=== PATIENT | male | born 1955 | race Hispanic/Latino ===

== ENCOUNTER → 2019-10-21 | Outpatient (CLI) | payer MEDICARE ==
[2019-10-21 11:11] LABS: BASOPHILS % (AUTO) 0.4 % (0.0-5.0); EOSINOPHILS % (AUTO) 0.2 % (0.0-8.0); HEMATOCRIT 44.6 % (42-54); LYMPHOCYTES % (AUTO) 24.9 % (21.0-51.0); MEAN CORPUSCULAR HEMOGLOBIN 27.6 pg (27.0-33.0); MEAN CORPUSCULAR HGB CONC 33.2 g/dL (32.0-36.0); MEAN CORPUSCULAR VOLUME 83.2 fL (79-99); MONOCYTES % (AUTO) 5.1 % (3.0-13.0); NEUTROPHILS % (AUTO) 68.1 % (40.0-77.0); PLATELET COUNT (AUTO) 348 K/uL (130-400); RED BLOOD CELL COUNT(AUTO) 5.36 MIL/uL (4.50-6.20); RED CELL DISTRIBUTION WIDTH 13.2 % (11.0-15.5); WHITE BLOOD COUNT (AUTO) 11.3 K/uL (4.8-10.8)
[2019-10-21 11:20] LABS: HEMOGLOBIN A1C 5.7 % (4.0-6.0)
[2019-10-21 11:33] LABS: ALBUMIN 3.7 g/dL (3.5-5.0); BILIRUBIN,TOTAL 0.4 mg/dL (0.2-1.0); CREATININE 1.1 mg/dL (0.5-1.5); THYROID STIMULATING HORMONE 1.66 uIU/mL (0.36-3.74)
== END | disposition home or self-care (01) ==
LOC: LAB 10:08
PROVIDERS: ATTEND Psychiatry & Neurology Psychiatry
DX: F31.12 Bipolar disorder, current episode manic without psychotic features, moderate (principal); F41.1 Generalized anxiety disorder; F45.1 Undifferentiated somatoform disorder; I10 Essential (primary) hypertension; G47.33 Obstructive sleep apnea (adult) (pediatric); Z79.899 Other long term (current) drug therapy
CPT/HCPCS: 36415; 80053; 80061; 83036; 84443; 85025

== ENCOUNTER 2025-08-01 10:49 | Emergency (ER) | payer MEDICARE ==
[~2025-08-01] VITALS: Ht 177.8 cm; Wt 120.2 kg
--- NOTE | 2025-08-01 10:53 | ERN ---
ED Note History of Present Illness Stated Complaint: TARRY STOOLS X 3 DAYS Chief Complaint: Tarry Stool Time Seen by MD: 10:52 Time Seen by Midlevel: 10:55 Dictation: Mr. Euceda is a 70 year old gentleman history of bipolar depression, anxiety, hypertension, CVA (right-sided weakness/balance issues), and obesity who presented to the emergency department this morning for evaluation of rectal bleeding. He states that for the past two days he noted black stool worse. He states he has been fatigued but denies shortness of breath, chest pain, palpitations, edema, fever, chills, abdominal pain, hematemesis, nausea, headache, or dizziness. He states this morning he had heavy flow" black and dark red bleeding with bowel movement prompting him to come to the hospital. He states he had a colonoscopy 20 years ago He states that his Mother, at age 20, was noted to have "cancerous polyps that required removal". He takes no Aspirin/antiplatelet medications or anticoagulants. PCP: Dr. Ronald Conway Allergies: Coded Allergies: No Known Drug Allergies (Unverified Allergy, Unknown, 08/01/25) Past Medical History Past Medical History: Anxiety, Bipolar, Hypertension Surgical History: Other Surgical History Other: NECK SURGERY PSYCH History: anxiety, bipolar, depression Social History: Negative, Lives with family RN Note Reviewed/Agreed w/PFSH: Yes Review of System Dictation REVIEW OF SYSTEMS: CONSTITUTIONAL: Patient denies fevers, chills, sweats and weight changes. Reports fatigue EYES: Patient denies any visual symptoms. EARS, NOSE, AND THROAT: No difficulties with hearing. No symptoms of rhinitis or sore throat. CARDIOVASCULAR: Patient denies chest pains, palpitations, orthopnea and paroxysmal nocturnal dyspnea. RESPIRATORY: No dyspnea on exertion, no wheezing or cough. GI: No nausea, vomiting, diarrhea, constipation, or abdominal pain. Reports two days of black tarry stools. He states this morning he had black and dark red stool. : No urinary hesitancy or dribbling. No nocturia or urinary frequency. No abnormal urethral discharge. MUSCULOSKELETAL: No myalgias or arthralgias. NEUROLOGIC: No chronic headaches, no seizures. Patient denies numbness, tingling or weakness. PSYCHIATRIC: Patient denies problems with mood disturbance. No problems with anxiety. ENDOCRINE: No excessive urination or excessive thirst. DERMATOLOGIC: Patient denies any rashes or skin changes. Initial Vital Sign VS Vital Signs Date Time Temp Pulse Resp B/P (MAP) Pulse Ox O2 Delivery O2 Flow Rate FiO2 08/01/25 10:50 97.9 91 18 137/88 98 Room Air 08/01/25 13:23 0 21 Physical Exam Dictation Vital signs: Reviewed. Afebrile Constitutional: No acute distress. Calm. Pleasant. Significant other at bedside Head/Face: Normocephalic, atraumatic. Eyes: Periorbital areas with no swelling, redness, or edema. Lids and lashes are normal. Conjunctival injection is absent. Sclera anicteric. Pupils equal, round, reactive to light. ENT: Pinnas intact and no signs of trauma or erythema. Ear canals clear and no discharge. TMs no erythema. No nasal discharge or bleeding noted. Oropharynx with no exudate, redness, swelling, masses, exudates, or evidence of obstruction. Uvula midline. Mucous membranes moist. Neck: Trachea midline, no masses palpated, and no cervical lymphadenopathy. No swelling. Supple, full range of motion. Chest/Axilla: No tenderness, no crepitus, no paradoxical movement, no retractions. Cardiovascular: Regular rate, regular rhythm, no murmur, no gallops. Symmetric pulses. No peripheral edema. 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 BP 137/88 Respiratory: Respirations even and unlabored. Lung sounds clear; no wheezes, rales or rhonchi. Room air SpO2 98% Gastrointestinal: Obese. No distention is appreciated. Bowel sounds are normal. No mass or organomegaly . There is no tenderness. No rebound. No rigidity. No voluntary or involuntary guarding. No Nathan's sign. Rectal Exam with forensic anthropologist present: Normal external appearance with several small, nonthrombosed external hemorrhoids noted. No fissures, no active bleeding. Digital exam reveals no masses, no tenderness, and normal sphincter come. No melena or hematochezia. Stool is light brown in color with no visible black or bright red blood. A stool occult blood test is positive. No blood on glove. Neurological: Normal speech, gross motor function intact, gross sensory function intact. No focal weakness/Paresthesia. Musculoskeletal/Extremities: All extremities have full range of motion, no pain or tenderness on palpation. Symmetric pulses. Integumentary: Intact. Skin is normal color, warm and dry. Cap refill less than 3 seconds. Results (Laboratory/Radiology) Laboratory/Radiology Laboratory Tests Test 08/01/25 11:08 08/01/25 12:00 White Blood Count 7.7 K/uL (4.8-10.8) Red Blood Count 5.17 MIL/uL (4.50-6.20) Hemoglobin 14.9 g/dL (14.0-18.0) Hematocrit 43.6 % (42-54) Mean Corpuscular Volume 84.3 fL (79-99) Mean Corpuscular Hemoglobin 28.8 pg (27.0-33.0) Mean Corpuscular Hemoglobin Concent 34.2 g/dL (32.0-36.0) Red Cell Distribution Width 13.1 % (11.0-15.5) Platelet Count 307 K/uL (130-400) Mean Platelet Volume 9.8 fL (7.5-10.5) Immature Granulocyte % (Auto) 0.5 % (0-1) Neutrophils (%) (Auto) 68.3 % (40.0-77.0) Lymphocytes (%) (Auto) 23.5 % (21.0-51.0) Monocytes (%) (Auto) 6.0 % (3.0-13.0) Eosinophils (%) (Auto) 1.3 % (0.0-8.0) Basophils (%) (Auto) 0.4 % (0.0-5.0) Neutrophils # (Auto) 5.3 K/uL (1.8-7.7) Lymphocytes # (Auto) 1.8 K/uL (1.0-4.8) Monocytes # (Auto) 0.5 K/uL (0.1-1.0) Eosinophils # (Auto) 0.10 K/uL (0.00-0.70) Basophils # (Auto) 0.03 K/uL (0.00-0.20) Absolute Immature Granulocyte (auto 0.04 K/uL (0-1) Nucleated Red Blood Cells 0.0 % (0.0-0.19) Sodium Level 140 mmol/L (136-145) Potassium Level 4.1 mmol/L (3.5-5.1) Chloride Level 103 mmol/L (101-111) Carbon Dioxide Level 29 mmol/L (21-32) Blood Urea Nitrogen 15 mg/dL (7-18) Creatinine 1.0 mg/dL (0.5-1.3) Glomerular Filtration Rate Calc 81 mL/min (>90) Random Glucose 102 mg/dL (70-105) Total Calcium 8.4 mg/dL (8.5-10.1) L Total Bilirubin 0.4 mg/dL (0.2-1.0) Direct Bilirubin 0.1 mg/dL (0.0-0.3) Aspartate Amino Transf (AST/SGOT) 18 U/L (10-37) Alanine Aminotransferase (ALT/SGPT) 20 U/L (12-78) Alkaline Phosphatase 142 U/L (50-136) H Troponin I High Sensitivity 10 ng/L (4-75) Total Protein 7.4 g/dL (6.0-8.3) Albumin 3.5 g/dL (3.5-5.0) Stool Occult Blood POSITIVE (NEGATIVE) H Labs Reviewed?: Yes EKG Comment: EKG Interpretation: Time Reviewed: 1112 Ventricular rate: 80 bpm NE Interval: 196 ms QRS duration: 111 ms Clinical Impression: sinus rhythm; no ST segment elevation or depression. EKG Reviewed and interpreted by Dr. Casey Lui ED Course ED Course Orders Procedure Category Date Status Time Occult Blood Stool LAB 08/01/25 Complete Single Only 10:52 Cbc With Differential LAB 08/01/25 Complete 10:52 Basic Metabolic Panel LAB 08/01/25 Complete 10:52 Hepatic Function Panel LAB 08/01/25 Complete 10:52 Troponin I High LAB 08/01/25 Complete Sensitivity 10:52 12 Lead Ekg Tracing- EKG 08/01/25 Resulted Technical 10:52 Type And Screen BBK 08/01/25 Complete 10:52 Saline Lock Iv CPOE 08/01/25 Transmitted 10:52 Vital Signs Date Time Temp Pulse Resp B/P (MAP) Pulse Ox O2 Delivery O2 Flow Rate FiO2 08/01/25 13:23 98.4 74 16 157/90 98 Room Air* 0 21 08/01/25 10:50 97.9 91 18 137/88 98 Room Air Uneventful ED course. Vital signs remained stable; afebrile and normotensive with room air SpO2 98%. Twelve lead EKG reflects a sinus rhythm without ST-elevation or depression. Laboratory findings as noted below. H and H are not low; 14.9/43.6 troponin is negative. Rectal exam noted few nonthrombosed nonbleeding external hemorrhoids. No active bleeding; no melena no hematochezia (stool brown) guaiac was positive. Findings were discussed with patient and his significant other. He was instructed to follow up with his PCP and that he is due for colonoscopy. Medical Decision Making MDM MDM: Differential diagnosis: Anemia secondary to hemorrhage, hemorrhoids, GI bleed Rationale: Tests considered and ordered secondary to shared decision making include: Lab, examination, EKG Previous outside records reviewed: Old ER visits. Risk of complication and/or morbidity or mortality of patient management: None Medications-Per medication reconciliation Need for hospitalization: Patient does not meet criteria for hospitalization. Need for emergency major/minor surgery: No There are no social concerns with this patient. Prescription drug management: No Prescriptions will include symptomatic care Patient's prior external medical records from other ER visits were reviewed by me as indicated. Prior testing and results from previous visits were reviewed. Prior tests were taken into account with medical decision making and resource utilization, independent historian/historians were used to obtain complete medical history. I independently interpreted the test that were performed, results were reviewed by me and considered findings on radiology if ordered. Medical management and examination interpretation discussions were had by me with other qualified healthcare professionals as indicated for the patient's care. DX & DISP Disposition: Discharge Departure Impression: Primary Impression: Rectal bleeding Additional Impression: External hemorrhoids Condition: Stable Additional Instructions: You were evaluated today for rectal bleeding. Her hemoglobin and hematocrit were normal, meaning there was no evidence of active or significant blood loss at this time. Rectal exam showed light brown stool, no visible bleeding and nonthrombosed external hemorrhoids which may account for some of your symptoms. Your stool test was positive for microscopic blood, so follow up is very important. Follow up with your primary care physician within the next 2-3 days for recheck and further evaluation. You are due for a colonoscopy, and this needs to be arranged as soon as possible. Please contact your PCP or digital content specialist to schedule this. Increase fluids and dietary fiber. Return to the ER immediately for any of the following: Bright red blood in the toilet, black, tarry stools, large amounts of bleeding or clots, dizziness, fainting, weakness, or lightheadedness. Severe abdominal pain, vomiting blood, or worsening symptoms or concerns. Avoid NSAIDs (ibuprofen, naproxen) if possible as they can worsened bleeding. Use Tylenol for discomfort. Avoid straining with bowel movements. Use a stool softener such as MiraLax if you are constipated. Referrals: RONALD CONWAY MD (PCP) Time of Disposition: 13:00 ATTESTATION BY PHYSICIAN I PERFORMED THE SUBSTANTIVE PORTION OF THE VISIT. I HAVE REVIEWED AND PERSONALLY MADE AND APPROVED THE MANAGEMENT PLAN THAT IS DOCUMENTED IN THE NOTE BY MYSELF FOR THE A PP. GERSON BALLESTEROS Aug 01, 2025 10:53 GITA LUI MD Aug 03, 2025 07:39
[2025-08-01 11:25] LABS: IMMATURE GRANULOCYTE ABSOLUTE 0.04 K/uL (0-1); NUCLEATED RED BLOOD CELLS 0.0 % (0.0-0.19); PLATELET COUNT (AUTO) 307 K/uL (130-400); RED BLOOD CELL COUNT(AUTO) 5.17 MIL/uL (4.50-6.20); RED CELL DISTRIBUTION WIDTH 13.1 % (11.0-15.5); WHITE BLOOD COUNT (AUTO) 7.7 K/uL (4.8-10.8)
[2025-08-01 11:36] LABS: CREATININE 1.0 mg/dL (0.5-1.3); GLOMERULAR FILTR. RATE CALC 81.0 mL/min (>90); GLUCOSE,RANDOM 102.0 mg/dL (70-105); SODIUM SERUM 140.0 mmol/L (136-145); UREA NITROGEN, BLOOD 15.0 mg/dL (7-18)
[2025-08-01 11:41] LABS: ASPARTATE AMINOTRANSFERASE 18.0 U/L (10-37); TOTAL PROTEIN, SERUM 7.4 g/dL (6.0-8.3)
[2025-08-01 13:23] VITALS: BP 157/90; PULSE 74; RESP 16; TEMP 98.4; O2SAT 98
--- NOTE | 2025-08-01 18:51 | EKG ---
[facility] Test Date: 2025-08-01 Test Time: 11:13:34 Pat Name: ANJEL MARTINEZ Department: ED Room: Gender: Enrollment Specialist[facility] [id number] Requested By: GERSON BALLESTEROS Order Number: [id number] Reading MD: Devin Quezada Measurements Intervals Bowman Rate: 80 P: 54 NC: 196 QRS: -17 QRSD: 111 T: 27 QT: 403 QTc: 466 Interpretive Statements Sinus rhythm No previous ECG available for comparison Electronically Signed On 08-02-2025 12:11:18 ESTHETICS INSTRUCTOR by Devin Quezada Please click the below link to view image of tracing.
== END 2025-08-01 13:42 | disposition home or self-care (01) ==
LOC: EDH 10:49
DX: K64.4 Residual hemorrhoidal skin tags (principal); F31.9 Bipolar disorder, unspecified; I10 Essential (primary) hypertension; Z79.899 Other long term (current) drug therapy
CPT/HCPCS: 36415; 80048; 80076; 82270; 84484; 85025; 86850; 86900; 86901; 93005; 99284